=== PATIENT | female | born 1950 | race Caucasian/White ===

== ENCOUNTER → 2017-09-07 | Outpatient (CLI) | payer MEDICARE, BC ==
--- NOTE | 2017-09-07 13:20 | BD ---
EXAMINATION TYPE: Axial Bone Density DATE OF EXAM: 09/07/2017 COMPARISON: NONE CLINICAL HISTORY: Postmenopausal female. Osteoporosis screening. Height: 66 Weight: 177.8 FRAX RISK QUESTIONS: Alcohol (3 or more units per day): no Family History (Parent hip fracture): no Glucocorticoids (More than 3mos): no (Ex: prednisone, prednisolone, methylprednisolone, dexamethasone, and hydrocortisone). History of Fracture in Adulthood: yes Secondary Osteoporosis: 1. Type 1 Diabetes: no 2. Hyperthyroidism: no 3. Menopause before 45: yes 4. Malnutrition: no 5. Chronic liver disease: no Rheumatoid Arthritis: no Current Tobacco Use: no RISK FACTORS HISTORY OF: Family History of Osteoporosis: yes Active: yes Diet low in dairy products/other sources of calcium: yes Postmenopausal woman: hysterectomy age 43 Lost more than 2 inches in height since high school: yes Frequent falls: no MEDICATIONS: tremodol, anti inflammatory med, losartan Additional History: EXAM MEASUREMENTS: Bone mineral densitometry was performed using the [employer] System. Bone mineral density as measured about the Lumbar spine is: ----- L1-L4(G/cm2): 0.861 T Score Values are as follows: ----- L2: -3.2 ----- L3: -2.1 ----- L4: -2.7 ----- L1-L4: -2.7 Bone mineral density has: decreased-6.4 % since study of: 10.16.2001 Bone mineral density about the R hip (g/cm2): 0.691 Bone mineral density about the L hip (g/cm2): 0.709 T Score values are as follows: -----R Neck: -2.5 -----L Neck: -2.4 -----R Total: -2.7 -----L Total: -2.0 Bone mineral density has: decreased-15.8 % since study of: 10.16.2001 IMPRESSION: Osteoporosis (T Score less than -2.5). There is increased fracture risk and therapy is usually indicated based on age. Re-Screen 1-2 years. NOTE: T-SCORE=SD OF THE YOUNG ADULT MEAN.
--- NOTE | 2017-09-11 08:45 | MM ---
Reason for exam: screening (asymptomatic). Last mammogram was performed 1 year and 6 months ago. History: Patient is postmenopausal. Took estrogen for 7 years. Physical Findings: A clinical breast exam by your physician is recommended on an annual basis and results should be correlated with mammographic findings. MG Screening Mammo w CAD Bilateral CC and MLO view(s) were taken. Prior study comparison: February 23, 2016, bilateral MG screening mammo w CAD. The breast tissue is heterogeneously dense. This may lower the sensitivity of mammography. No significant changes when compared with prior studies. ASSESSMENT: Negative, BI-RAD 1 RECOMMENDATION: Routine screening mammogram of both breasts in 1 year.
== END | disposition home or self-care (01) ==
LOC: RADMAMWWP 09:07
PROVIDERS: ATTEND Family Medicine
DX: Z12.31 Encounter for screening mammogram for malignant neoplasm of breast (principal); M81.0 Age-related osteoporosis without current pathological fracture
CPT/HCPCS: 77067; 77080

== ENCOUNTER → 2018-10-31 | Outpatient (CLI) | payer MEDICARE ==
--- NOTE | 2018-10-31 13:41 | MM ---
Reason for exam: screening (asymptomatic). Last mammogram was performed 1 year and 2 months ago. History: Patient is postmenopausal. Took estrogen for 7 years. Physical Findings: A clinical breast exam by your physician is recommended on an annual basis and results should be correlated with mammographic findings. MG 3D Screening Mammo W/Cad Bilateral CC and MLO view(s) were taken. Prior study comparison: September 07, 2017, bilateral MG screening mammo w CAD. February 23, 2016, bilateral MG screening mammo w CAD. The breast tissue is heterogeneously dense. This may lower the sensitivity of mammography. There is no discrete abnormality. ASSESSMENT: Negative, BI-RAD 1 RECOMMENDATION: Routine screening mammogram of both breasts in 1 year.
== END | disposition home or self-care (01) ==
LOC: RADMAMWWP 09:04
PROVIDERS: ATTEND Family Medicine
DX: Z12.31 Encounter for screening mammogram for malignant neoplasm of breast (principal)
CPT/HCPCS: 77063; 77067

== ENCOUNTER 2020-06-03 15:04 | Observation (INO) | payer MEDICARE ==
[2020-06-03] MEDS ORDERED: ASPIRIN 81 MG PO STA (15:37)
[2020-06-03] MEDS ORDERED: SODIUM CHLORIDE 0.9% 1,000 ML IV STA (15:37)
[2020-06-03 15:48] LABS: Basophils % (A) 0 %; Eosinophils # (A) 0.5 k/uL (0-0.7); Eosinophils % (A) 5 %; HCT 42.6 % (34.0-46.0); HGB 14.6 gm/dL (11.4-16.0); Lymphocytes # (A) 2.1 k/uL (1.0-4.8); Lymphocytes % (A) 24 %; MCH 30.4 pg (25.0-35.0); MCHC 34.3 g/dL (31.0-37.0); MCV 88.8 fL (80.0-100.0); Mean Platelet Volume 6.9; Monocytes # (A) 0.4 k/uL (0-1.0); Monocytes % (A) 5 %; Neutrophils # (A) 5.6 k/uL (1.3-7.7); Neutrophils % (A) 65 %; Platelet Count 367 k/uL (150-450); RDW 12.3 % (11.5-15.5); WBC 8.7 k/uL (3.8-10.6)
--- NOTE | 2020-06-03 15:53 | ED ---
Chest Pain HPI - General Chief Complaint: Chest Pain Stated Complaint: chest pain Time Seen by Provider: 06/03/20 15:23 Source: patient, RN notes reviewed Mode of arrival: wheelchair Limitations: no limitations - History of Present Illness Initial Comments: This is a 59-year-old female no prior history of heart or lung disease who was a former smoker who quit 20 years ago who states that over the past 3 days she's been having intermittent episodes of lower retrosternal chest pain with radiation to her back. He states is pressure-like with associated diaphoresis no nausea no vomiting she develops heartburn. It was 10/10 in severity when it would come on. She currently is pain-free no fevers chills sweats cough or other symptoms at this time. MD Complaint: chest pain - Related Data Home Medications Medication Instructions Recorded Confirmed Atorvastatin [Lipitor] 40 mg PO DAILY 06/03/20 06/03/20 Esomeprazole Magnesium [NexIUM 20 mg PO DAILY 06/03/20 06/03/20 24Hr] Lisinopril-Hctz 20-12.5 mg 1 tab PO DAILY 06/03/20 06/03/20 [Zestoretic 20-12.5] Meloxicam [Mobic] 15 mg PO DAILY 06/03/20 06/03/20 traMADol HCL [Ultram] 50 mg PO HS 06/03/20 06/03/20 Allergies Allergy/AdvReac Type Severity Reaction Status Date / Time No Known Allergies Allergy Verified 06/03/20 16:12 Review of Systems ROS Statement: Those systems with pertinent positive or pertinent negative responses have been documented in the HPI. ROS Other: All systems not noted in ROS Statement are negative. EKG Findings - EKG Results: EKG: interpreted by KAYLAN, sinus rhythm (Normal sinus rhythm rate 87. Interval 1:30 QRS duration 84 daily since QTC 378/[address]-T wave changes) Past Medical History Past Medical History: Hyperlipidemia, Hypertension History of Any Multi-Drug Resistant Organisms: None Reported Past Surgical History: Hysterectomy, Orthopedic Surgery Past Psychological History: No Psychological Hx Reported Smoking Status: Former smoker Past Alcohol Use History: None Reported Past Drug Use History: None Reported General Exam - General Exam Comments Initial Comments: This is a well-developed well-nourished awake alert oriented 3 female Limitations: no limitations General appearance: alert, anxious Head exam: Present: atraumatic, normocephalic, normal inspection Eye exam: Present: normal appearance, PERRL, EOMI. Absent: scleral icterus, c onjunctival injection, periorbital swelling ENT exam: Present: normal exam, mucous membranes moist Neck exam: Present: normal inspection, full ROM, other. Absent: tenderness, meningismus, lymphadenopathy Respiratory exam: Present: normal lung sounds bilaterally. Absent: respiratory distress, wheezes, rales, rhonchi, stridor, chest wall tenderness (No stridor. Bruits) Cardiovascular Exam: Present: regular rate, normal rhythm, normal heart sounds. Absent: systolic murmur, diastolic murmur, rubs, gallop, clicks GI/Abdominal exam: Present: soft, normal bowel sounds. Absent: distended, tenderness, guarding, rebound, rigid Extremities exam: Present: normal inspection, full ROM, normal capillary refill. Absent: tenderness, pedal edema, joint swelling, calf tenderness Back exam: Present: normal inspection Neurological exam: Present: alert, oriented X3, CN II-XII intact Psychiatric exam: Present: normal affect, normal mood Skin exam: Present: warm, dry, intact, normal color. Absent: rash Course Vital Signs 06/03/20 06/03/20 06/03/20 15:15 15:33 16:53 Temperature 98.1 F Pulse Rate 89 74 Pulse Rate [ 89 Claims Associate ] Respiratory 17 16 16 Rate Blood Pressure 119/80 O2 Sat by Pulse 98 100 Oximetry 06/03/20 17:49 Temperature Pulse Rate 73 Pulse Rate [ Claims Associate ] Respiratory 16 Rate Blood Pressure 137/73 O2 Sat by Pulse 100 Oximetry - Reevaluation(s) Reevaluation #1: 06/03/20 16:51 The patient C/O recurrent chest pain /10 similar to the other pain. Reevaluation #2: 06/03/20 17:17 Repeat EKG sinus rhythm of 67. Interval 128 QRS duration 82 QT/QTC 390/412 nonspecific T-wave figure aeration this is compared to an earlier one today. Chest Pain MDM - MDM The patient had recurrent chest pain where she department which did resolve after nitroglycerin. EKGs showed no acute changes x-ray was negative for acute findings. Patient will be admitted I did discuss the case with Nilsa was covering for Dr. Irizarry Critical Care Time Critical Care Time: Yes Total Critical Care Time: 35 Critical Care Time: Total care time includes initial presentation with history physical labs x-rays multiple reevaluation patient responsive therapy discussion with the patient family regarding findings discussion with the admitting service admitting orders neck mentation the above Disposition Clinical Impression: Unstable angina pectoris, Chest pain Disposition: ADMITTED IP TO THIS HOSP Condition: Fair Referrals: Cruz Smith DO [Primary Care Provider] - 1-2 days
[2020-06-03 15:59] LABS: D-Dimer 0.58 mg/L FEU (<0.60); Partial Thromboplastin Time 23.7 sec (22.0-30.0); Prothrombin Time 10.4 sec (9.0-12.0)
--- NOTE | 2020-06-03 15:59 | XR ---
EXAMINATION TYPE: XR chest 2V DATE OF EXAM: 06/03/2020 COMPARISON: 12/23/2011 HISTORY: 69-year-old female with chest pain TECHNIQUE: PA and lateral views FINDINGS: Heart normal size. Mild elongation of the thoracic aorta. EKG stickers seen projecting at the periphe ry of the upper lungs bilaterally. Focal left basilar opacity. No pleural effusion. IMPRESSION: Focal left basilar opacity could represent atelectasis or early infiltrate. Correlate with patient's symptoms.
[2020-06-03 16:00] LABS: Albumin 4.5 g/dL (3.5-5.0); Calcium 9.9 mg/dL (8.4-10.2); Magnesium 1.9 mg/dL (1.6-2.3); Potassium 3.8 mmol/L (3.5-5.1); Total Bilirubin 0.4 mg/dL (0.2-1.3); Total Protein 7.6 g/dL (6.3-8.2)
[2020-06-03] MEDS ORDERED: NITROGLYCERIN SL TABS 0.4 MG TAB SUBLINGUAL STA (16:50)
[2020-06-03] MEDS ORDERED: HEPARIN SODIUM,PORCINE 5,000 UNIT/ML 1 ML VIAL IV ONE (18:07)
[2020-06-03] MEDS ORDERED: NITROGLYCERIN SL TABS 0.4 MG TAB SUBLINGUAL PRN (18:07)
[2020-06-03] MEDS ORDERED: HEPARIN SOD,PORK IN 0.45% NACL 25,000 UNIT in 0.45% NACL 1 250ML.BAG IV SCH (18:15)
[2020-06-03] MEDS ORDERED: NITROGLYCERIN OINT 1 INCH/GM PACKET TOPICAL STA (18:18)
[2020-06-03] MEDS: SODIUM CHLORIDE 0.9% 1,000 ML IV SCH (18:20)
[2020-06-03] MEDS ORDERED: traMADol 50 MG TAB PO SCH (21:00)
[2020-06-03] MEDS ORDERED: HEPARIN SODIUM,PORCINE 5,000 UNIT/ML 1 ML VIAL IV PRN (22:37)
[2020-06-04] MEDS: NITROGLYCERIN OINT 1 INCH/GM PACKET TOPICAL SCH ×2 (04:23→06:13)
[2020-06-04 07:09] LABS: Cholesterol 239 mg/dL (<200); HDL Cholesterol 59 mg/dL (40-60); LDL Cholesterol,Calculated 155 mg/dL (0-99); Triglycerides 126 mg/dL (<150)
[2020-06-04 08:05] VITALS: RESP 18
[2020-06-04] MEDS ORDERED: SODIUM CHLORIDE 0.9% 1,000 ML in EMPTY BAG 1 BAG IV ONE (08:21)
[2020-06-04] MEDS ORDERED: ALPRAZolam 0.5 MG TAB PO PRN (08:21)
[2020-06-04] MEDS ORDERED: NITROGLYCERIN SL TABS 0.4 MG TAB SUBLINGUAL PRN (08:21)
[2020-06-04] MEDS ORDERED: ASPIRIN 325 MG TAB PO STA (08:21)
[2020-06-04] MEDS ORDERED: ALPRAZolam 0.25 MG TAB PO PRN (08:21)
[2020-06-04] MEDS ORDERED: ATORVASTATIN 80 MG TAB PO STA (08:21)
[2020-06-04] MEDS ORDERED: ATORVASTATIN 40 MG TAB PO STA (08:24)
[2020-06-04] MEDS ORDERED: MELOXICAM 7.5 MG TAB PO SCH (09:00)
[2020-06-04] MEDS ORDERED: ASPIRIN 81 MG PO SCH (09:00)
[2020-06-04] MEDS ORDERED: ASPIRIN 325 MG TAB PO SCH (09:00)
[2020-06-04] MEDS ORDERED: ATORVASTATIN 40 MG TAB PO SCH (09:00)
[2020-06-04] MEDS ORDERED: PANTOPRAZOLE 40 MG TABLET PO SCH (09:00)
[2020-06-04] MEDS ORDERED: LISINOPRIL-HCTZ 20-12.5 MG 1 EACH TAB PO SCH (09:00)
--- NOTE | 2020-06-04 11:42 | CONS ---
CONSULTATION Mrs. Carlson is a 69-year-old female with a known history of hypertension, hyperlipidemia, a family history of premature coronary artery disease who presented with symptoms of chest discomfort. She has been having the discomfort on and off for the last few days, brief, not clearly exertion in pattern. Yesterday the discomfort was worse and she came into the emergency room. At the time my evaluation, she was doing well. The patient is average in exercise tolerance, has no clear exertional chest discomfort in the past. She has underwent cardiac catheterization about 20 years ago that revealed no evidence of high-grade stenosis according to her. She has no PND, orthopnea, or peripheral edema. No dizziness or palpitation. No syncope. Her coronary risk factors are remarkable for the hypertension, hyperlipidemia and a family history of premature coronary artery disease. MEDICATIONS: Her medications include Nexium 20 mg daily, tramadol, Mobic on a p.r.n. basis, lisinopril HCT 20/12.5 mg daily, Lipitor 40 mg daily. REVIEW OF SYSTEMS: RESPIRATORY SYSTEM: She has no documented history of asthma or emphysema. No recent fever or chills. GI SYSTEM: No recent GI bleed. No peptic ulcer disease. SYSTEM: No dysuria or hematuria. NERVOUS SYSTEM: No stroke or seizure. PHYSICAL EXAMINATION: A 69-year-old female, alert, oriented, in no apparent distress. Blood pressure 126/70 with the heart rate in the 70s. HEAD: Normocephalic. EYES: Sclerae anicteric. NECK: Good carotid upstroke. No bruit. No jugular venous distention. LUNGS: Clear to auscultation. HEART: Regular rate and rhythm. S1, S2. No S3. No S4. No murmur or rub. ABDOMEN: Soft, nontender. Positive bowel sounds. No organomegaly. EXTREMITIES: No edema. Intact distal pulses. LAB DATA: Lab data revealed a BUN and creatinine 21and 0.82. Troponin of less than 0.012 for 3 samples. Potassium 3.8, hemoglobin 14.6. EKG: First EKG revealed sinus mechanism, normal axis and intervals with minor nonspecific ST-T wave changes. Subsequent EKG showed mild T-wave inversion in the lateral precordial leads. IMPRESSION: 1. Chest discomfort of unclear etiology with mild EKG changes and multiple risk factors. 2. History of hypertension. 3. Hyperlipidemia. 4. Family history of premature coronary artery disease. RECOMMENDATION: In view of her risk factors, her presentation and the results of her EKG, I have recommended proceeding with coronary angiography to assess her status and guide her treatment. The rationale behind the procedure as well as the risks and the complications were discussed with the patient and she is in full understanding and agreement. Thank you for this consult. We will follow with you. WING / JACKY: [id number] /
[2020-06-04] MEDS ORDERED: IV FLUID CONTINUATION 900 ML IV ONE (13:00)
[2020-06-04] MEDS ORDERED: VERAPAMIL 2.5 MG/ML 2 ML AMP ONE (13:06)
[2020-06-04] MEDS ORDERED: HEPARIN SODIUM 1,000 UN/ML (10ML VL) ONE (13:06)
[2020-06-04] MEDS ORDERED: fentaNYL (PF) 50 MCG/ML 2 ML AMP ONE (13:06)
[2020-06-04] MEDS ORDERED: LIDOCAINE 1% INJ 10MG/ML (20 ML MDV) ONE (13:06)
[2020-06-04] MEDS ORDERED: fentaNYL (PF) 50 MCG/ML 2 ML AMP IV ONE (13:08)
[2020-06-04] MEDS: LIDOCAINE 1% INJ 10MG/ML (20 ML MDV) SQ ONE ×2 (13:09→13:23)
[2020-06-04] MEDS ORDERED: IOPAMIDOL-370 125ML BTL INJ ONE (13:30)
[2020-06-04] MEDS ORDERED: RX INFO: IV CONTRAST WAS GIVEN 1 EACH MISC MISCELLANE PRN (13:39)
--- NOTE | 2020-06-04 13:44 | ECHOF ---
Referral Reason:cp MEASUREMENTS -------- HEIGHT: 170.2 cm WEIGHT: 72.6 kg BP: RVIDd: 3.1 cm (< 3.3) IVSd: 1.2 cm (0.6 - 1.1) LVIDd: 4.2 cm (3.9 - 5.3) LVPWd: 1.6 cm (0.6 - 1.1) IVSs: 1.5 cm LVIDs: 3.4 cm LVPWs: 1.2 cm LAESV Index (A-L): 13.64 ml/m MV EXCURSION: 21.518 mm (> 18.000) MV EF SLOPE: 155 mm/s (70 - 150) EPSS: 0.5 cm MV E Parish: 0.55 m/s MV DecT: 242 ms MV A Parish: 0.78 m/s MV E/A Ratio: 0.70 RAP: 5.00 mmHg RVSP: 26.73 mmHg FINDINGS -------- Sinus rhythm. This was a technically adequate study. The left ventricular size is normal. There is borderline concentric left ventricular hypertrophy. Overall left ventricular systolic function is normal with, an EF between 55 - 60 %. The diastolic filling pattern is normal for the age of the patient 10.77. The right ventricle is normal in size. Normal LA size by volume 22+/-6 ml/m2. The right atrial size is normal. xx ml of Lumason was utilized for enhancement of images. The aortic valve is trileaflet, and appears structurally normal. No aortic stenosis or regurgitation. The mitral valve is normal. Mild mitral regurgitation is present. The tricuspid valve appears structurally normal. Mild tricuspid regurgitation present. Right vent ricular systolic pressure is normal at < 35 mmHg. The pulmonic valve was not well visualized. The aortic root size is normal. There is no pericardial effusion. CONCLUSIONS -------- 1. There is borderline concentric left ventricular hypertrophy. 2. Overall left ventricular systolic function is normal with, an EF between 55 - 60 %. 3. Normal LA size by volume 22+/-6 ml/m2. 4. xx ml of Lumason was utilized for enhancement of images. 5. The aortic valve is trileaflet, and appears structurally normal. No aortic stenosis or regurgitati on. 6. Mild mitral regurgitation is present. 7. Mild tricuspid regurgitation present. 8. There is no pericardial effusion. REGISTRY NP: Antoinette Wise RDCS
[2020-06-04] MEDS ORDERED: SODIUM CHLORIDE 0.9% 1,000 ML IV SCH (13:45)
--- NOTE | 2020-06-04 14:34 | CC ---
CARDIAC CATHETERIZATION REPORT Mrs. Carlson is a 69-year-old female with known history of hypertension, hyperlipidemia and a family history of premature coronary artery disease who presented with symptoms of chest discomfort. She had no enzymatic changes but there was mild T- wave inversion in the lateral leads. Because of those findings and her symptoms, recommendation was made regarding cardiac catheterization. The procedure, its risks and the complications were discussed with the patient who is in full understanding and agreement. PROCEDURE: Patient was brought to the engineering lab technician in a fasting semi-sedated state after receiving fentanyl and Benadryl and achieving moderate conscious sedated state. Using Xylocaine anesthesia and Seldinger technique, a 6-Cymraes sheath was attempted to advance the wire in the right radial artery. After obtaining blood return, we were unsuccessful because of spasm. Subsequently, using Xylocaine anesthesia and Seldinger technique a 6-Cymraes sheath was introduced in the right femoral artery. Selective right and left coronary angiography was performed using 5-Cymraes 3.5 bend right and left Negro catheter. Multiple views of the coronary artery including hemiaxial views were obtained. Following that 5-Cymraes tight pigtail catheter was introduced in the left ventricle and a 30-degree JIMENEZ view of the left ventricle was obtained. Following that, catheter and sheath were removed. Hemostasis was obtained with deployment of an Angio-Seal. There was no immediate complication. Patient was returned to her room in stable condition. FINDINGS: LEFT MAIN: This is a large-size vessel, bifurcating into left circumflex, left anterior descending artery. Left main coronary artery has no evidence of high-grade stenosis. LEFT ANTERIOR DESCENDING ARTERY: This is a large-sized vessel reaching to the apex with a wraparound apex segment giving rise to a proximal diagonal branch. The left anterior descending artery as well as branches have no evidence of obstructive coronary artery disease. LEFT CIRCUMFLEX: This is a nondominant vessel, large in caliber giving rise to a large obtuse marginal branch. The left circumflex as well as branches have no evidence of obstructive coronary artery disease. RIGHT CORONARY ARTERY: This is a large dominant vessel bifurcating distally PDA and posterolateral segment and branches. The right coronary artery as well as branches have no evidence of obstructive coronary artery disease. EFT VENTRICULOGRAM: Left ventriculogram was not performed. HEMODYNAMICS: There was no gradient across the aortic valve. The left ventricular end- diastolic pressure was 12-16 mmHg. CONCLUSION: 1. Normal coronary arteries. 2. Normal left ventricular systolic pressure. RECOMMENDATION: In view of findings and anatomy, I recommend continue medical therapy with aggressive coronary risk modifications that have been initiated. Those findings and recommendation were discussed with the patient and she was in full understanding and agreement. Duration of sedation is 24 minutes. WING / JACKY: [id number] /
[2020-06-04] MEDS ORDERED: ACETAMINOPHEN TAB 325 MG TAB PO PRN (15:09)
[2020-06-04] MEDS: SODIUM CHLORIDE 0.9% 1,000 ML IV SCH (19:23)
[2020-06-04 20:23] VITALS: BP 131/78; PULSE 73; TEMP 97.9
[2020-06-05] MEDS ORDERED: HEPARIN SODIUM,PORCINE 2,500 UNIT in SODIUM CHLORIDE 0.9% 250 ML IRRIGATION PRN (07:00)
[2020-06-05] MEDS ORDERED: HEPARIN SODIUM,PORCINE 10,000 UNIT in SODIUM CHLORIDE 0.9% 1,000 ML IRRIGATION PRN (07:00)
== END 2020-06-04 20:40 | disposition home or self-care (01) ==
LOC: EC 15:04 → 6NMEDSUR 18:17
PROVIDERS: ADMIT Internal Medicine; ATTEND Internal Medicine
DX: R07.9 Chest pain, unspecified (principal); E78.5 Hyperlipidemia, unspecified; I10 Essential (primary) hypertension; R61 Generalized hyperhidrosis; Z87.891 Personal history of nicotine dependence; Z79.1 Long term (current) use of non-steroidal anti-inflammatories (NSAID); Z82.49 Family history of ischemic heart disease and other diseases of the circulatory system; Z90.710 Acquired absence of both cervix and uterus; Z79.899 Other long term (current) drug therapy
CPT/HCPCS: 96366 ×3; 96376; 96361; 96365; 99291; 36415; 94760; 93005; 93458; 85379; 83880; 80061; 80053; 82550; 83690; 83735; 84484; 85025; 85610; 85730 ×2; 87635; 71046; G0378 ×2; C8929; C1760; C1894 ×2; C1769 ×2; J1644 ×2; J2001; J3010; Q9950; Q9967; 93306

== ENCOUNTER → 2021-09-07 | Outpatient (CLI) | payer MEDICARE, OTHER ==
--- NOTE | 2021-09-07 20:48 | BD ---
EXAMINATION TYPE: Axial Bone Density DATE OF EXAM: 09/07/2021 COMPARISON: 09.07.2017 CLINICAL HISTORY: 71 years year old Female. ICD-10 CODE: M81.0 OSTEOPOROSIS Height: 65IN Weight: 178 FRAX RISK QUESTIONS: History of Fracture in Adulthood: YES Secondary Osteoporosis: 3. Menopause before 45: AT 47 RISK FACTORS HISTORY OF: HISTORY OF ELBOW FX Family History of Osteoporosis: YES Diet low in dairy products/other sources of calcium: YES Postmenopausal woman: HYSTERECTOMY AT 47 Take estrogen and/or progesterone medications: IN THE PAST FOR 10 YEARS Lost more than 2 inches in height since high school: YES MEDICATIONS: Additional Medications: BP MEDS, PAIN MEDS, CHOLESTEROL MED, VITAMIN D EXAM MEASUREMENTS: Bone mineral densitometry was performed using the [employer] System. Bone mineral density as measured about the Lumbar spine is: ----- L1-L4(G/cm2): 0.880 T Score Values are as follows: ----- L1: -2.9 ----- L2: -3.1 ----- L3: -2.4 ----- L4: -1.7 ----- L1-L4: -2.5 Bone mineral density has: Increased 3.4% since study of: 09-07-2017 Bone mineral density about the R hip (g/cm2): 0.673 Bone mineral density about the L hip (g/cm2): 0.735 T Score values are as follows: -----R Neck: -2.7 -----L Neck: -2.3 -----R Total: -2.7 -----L Total: -2.2 Bone mineral density has: Decreased -0.6% since study of: 09.07.2017 FRAX%s: The graph provided illustrates a 14.3% chance for a major osteoporotic fx and a 3.7% chance f or the hips probability for fx in 10 years time. IMPRESSION: Osteoporosis (T Score less than -2.5). There is increased fracture risk and therapy is usually indicated based on age. Re-Screen 1-2 years. NOTE: T-SCORE=SD OF THE YOUNG ADULT MEAN.
--- NOTE | 2021-09-13 13:43 | MM ---
Reason for Exam: Screening (asymptomatic). Last mammogram was performed 2 year(s) and 10 month(s) ago. Patient History: Menarche at age 16. Left ovary removed at age 43. Right ovary removed at age 43. Hysterectomy at age 43. Postmenopausal. Patient used Estrogen for 7 years. Maternal cousin had breast cancer at or over age 50. Risk Values: Che 5 year model risk: 1.1%. NCI Lifetime model risk: 3.5%. Prior Study Comparison: 02/23/2016 Bilateral Screening Mammogram, [facility]. 09/07/2017 Bilateral Screening Mammogram, [facility]. 10/31/2018 Bilateral Screening Mammogram, [facility]. Tissue Density: The breast tissue is heterogeneously dense. This may lower the sensitivity of mammography. Findings: Analyzed By CAD. Benign-appearing bilateral axillary lymph nodes are redemonstrated. There is no suspicious group of microcalcifications or new suspicious mass in either breast. Overall Assessment: Negative, BI-RAD 1 Management: Screening Mammogram of both breasts in 1 year. A clinical breast exam by your physician is recommended on an annual basis and results should be correlated with mammographic findings. Electronically signed and approved by: Wojciech Felton M.D.
== END | disposition home or self-care (01) ==
LOC: RADBDWWP 09:50
PROVIDERS: ATTEND Family Medicine
DX: Z12.31 Encounter for screening mammogram for malignant neoplasm of breast (principal); M81.0 Age-related osteoporosis without current pathological fracture
CPT/HCPCS: 77063; 77067; 77080

== ENCOUNTER → 2023-07-19 | Outpatient (CLI) | payer MEDICARE ==
--- NOTE | 2023-07-20 11:02 | CA ---
Exercise Stress Test Report Name: Janet Carlson Exam Date: 07/19/2023 11:48 Exam Location: [place] Stress Ht (in): 67 Wt (lb): 177 BSA: 1.92 Ordering Phys: Cruz Smith DO Referring Phys: Josi Alexandra Technologist: JOSE MATOS Age: 72 Gender: F : 1950 Procedure CPT: Indications: R07.9 CHEST PAIN R53.83 FATIGUE ICD-10 Codes: Patient History: Medications: LISINOPRIL, ATORVASTATIN, TRAMADOL Meds past 24 hrs: Pretest Chest Pain: STRESS TEST Av Protocol Exercise Duration (min:sec): 03:[address] Depressions (mm): Angina Score: Soliz Score: Resting HR (bpm): 74 Peak HR (bpm): 128 Resting BP (mmHg): 171 / 102 Peak BP (mmHg): 196 / 95 MPHR: 150 Target HR: 128 % MPHR: 85 METS: 4.7 Total Dose: Peak Dose: Atropine: Double Product: 84692 BP Response: Stress Termination: Reached target heart rate Stress Symptoms: NO SYMPTOMS Stress Summary: ECG ANALYSIS Resting ECG: Stress ECG: CONCLUSIONS Baseline heart is 72 beats a minute, Baseline blood pressure 171/102 mmHg hypertension Patient exercised on a Av protocol for 3 minutes only achieving 4.7 METs of workload Peak heart rate 137 beats a minute No ECG also ischemia no arrhythmias Impression Patient exercised a Av protocol for only 3 minutes No abnormalities noted at this workload level Dr. Keven Patino MD (Electronically Signed) Final Date: 20 July 2023 11:01
== END | disposition home or self-care (01) ==
LOC: RADNMMAIN 10:42
PROVIDERS: ATTEND Family Medicine
DX: I10 Essential (primary) hypertension (principal); R07.9 Chest pain, unspecified; R53.83 Other fatigue
CPT/HCPCS: 93017

== ENCOUNTER → 2023-08-29 | Outpatient (CLI) | payer MEDICARE ==
--- NOTE | 2023-08-29 11:52 | XR ---
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 FINDINGS: No evidence of any acute osseous pathology. No evidence of loss of vertebral body height i s seen. There is normal alignment of the lumbar vertebral bodies. Endplate spondylosis at multiple le vels. Narrowed facet joint on the left at L5-S1. Degenerative loss of disc height at L4-L5 IMPRESSION: 1. No acute fracture. 2. Mild multilevel disc degeneration.
== END | disposition home or self-care (01) ==
LOC: RADXRYALE 10:22
PROVIDERS: ATTEND Physician Assistant
DX: M51.36 Other intervertebral disc degeneration, lumbar region (principal)
CPT/HCPCS: 72110

== ENCOUNTER → 2023-09-13 | Outpatient (CLI) | payer MEDICARE ==
--- NOTE | 2023-09-13 14:49 | MR ---
EXAMINATION TYPE: MR lumbar spine wo con DATE OF EXAM: 09/13/2023 COMPARISON: None HISTORY: Low back pain that radiates down both legs. TECHNIQUE: Multiplanar, multisequence images of the lumbar spine were acquired without IV contrast. L1-L2: Normal disc appearance without desiccation. No herniation, protrusion or disc bulging. No ca nal stenosis is present. Foramina are patent bilaterally. L2-L3: Normal disc appearance without desiccation. No herniation, protrusion or disc bulging. No ca nal stenosis is present. Foramina are patent bilaterally. L3-L4: Mild decreased signal ossified compatible degenerative disc disease. Posterior disc bulge with effacement of the ventral thecal sac. Bilateral lateral recess stenosis and foraminal encroachment. No evidence of herniation or central stenosis at this time. L4-L5: Mild disc desiccation with minimal posterior disc bulge. No herniation, protrusion or disc bul ging. No canal stenosis is present. Mild bilateral neural foraminal encroachment. L5-S1: Mild disc desiccation mild posterior disc bulge. No herniation or disc protrusion. No central stenosis. Mild bilateral foraminal encroachment. Lumbar segments are intact. No paraspinal masses are identified. Conus medullaris has a normal appe arance. IMPRESSION: 1. Multilevel degenerative disc disease. 2. Bilateral lateral recess stenosis at L3-4. 3. Neural foraminal encroachment as outlined above.
== END | disposition home or self-care (01) ==
LOC: RADMRIMAIN 12:27
PROVIDERS: ATTEND Family Medicine
DX: M51.36 Other intervertebral disc degeneration, lumbar region (principal); M48.061 Spinal stenosis, lumbar region without neurogenic claudication; M54.16 Radiculopathy, lumbar region
CPT/HCPCS: 72148

== ENCOUNTER → 2023-09-13 | Outpatient (CLI) | payer MEDICARE ==
--- NOTE | 2023-09-13 13:50 | BD ---
EXAMINATION TYPE: Axial Bone Density DATE OF EXAM: 09/13/2023 CLINICAL HISTORY: 73 years old Female. ICD-10 CODE: M81.0 AGE-RELATED OSTEOPOROSI Height: 64.75in Weight: 173lb FRAX RISK QUESTIONS: History of Fracture in Adulthood: yes Secondary Osteoporosis: 3. Menopause before 45: at 47 RISK FACTORS HISTORY OF: MEDICATIONS: Osteoporosis Medications: Which medication: Fosamax How Lon year EXAM MEASUREMENTS: Bone mineral densitometry was performed using the [employer] System. Bone mineral density as measured about the Lumbar spine is: ----- L1-L4(G/cm2): 0.848 T Score Values are as follows: ----- L1: -3.2 ----- L2: -3.0 ----- L3: -2.7 ----- L4: -2.3 ----- L1-L4: -2.8 Z Score Values are as follows: ----- L1: -2.0 ----- L2: -1.8 ----- L3: -1.5 ----- L4: -1.1 ----- L1-L4: -1.5 Bone mineral density has: Decreased -3.6% since study of: 09-07-21 Bone mineral density about the R hip (g/cm2): 0.661 Bone mineral density about the L hip (g/cm2): 0.724 T Score values are as follows: -----R Neck: -2.7 -----L Neck: -2.5 -----R Total: -2.8 -----L Total: -2.3 Z Score values are as follows: -----R Neck: -1.3 -----L Neck: -1.0 -----R Total: -1.6 -----L Total: -1.1 Bone mineral density has: Decreased -1.7% since study of: 09-07-21 FRAX%s: The graph provided illustrates a 15% chance for a major osteoporotic fx and a 4.2% chance for the hips probability for fx in 10 years time. IMPRESSION: Osteoporosis (T Score less than -2.5). There is increased fracture risk and therapy is usually indicated based on age. Re-Screen 1-2 years. NOTE: T-SCORE=SD OF THE YOUNG ADULT MEAN.
--- NOTE | 2023-09-17 07:52 | MM ---
Reason for Exam: Screening (asymptomatic). Last mammogram was performed 2 year(s) and 0 month(s) ago. Patient History: Menarche at age 16. First Full-Term at age 26. Left ovary removed at age 43. Right ovary removed at age 43. Hysterectomy at age 43. Postmenopausal. Patient used Estrogen for 7 years. Maternal cousin had breast cancer at or over age 50. Risk Values: Che 5 year model risk: 1.4%. NCI Lifetime model risk: 4.0%. Prior Study Comparison: 09/07/2017 Bilateral Screening Mammogram, [facility]. 10/31/2018 Bilateral Screening Mammogram, [facility]. 09/07/2021 Bilateral MG 3D screening mammo w/cad, [facility]. Tissue Density: The breasts are heterogeneously dense, which may obscure small masses. Findings: Analyzed By CAD. There is no suspicious group of microcalcifications or new suspicious mass in either breast. Overall Assessment: Negative, BI-RAD 1 Management: Screening Mammogram of both breasts in 1 year. . Patient should continue monthly self-breast exams. A clinical breast exam by your physician is recommended on an annual basis. This exam should not preclude additional follow-up of suspicious palpable abnormalities. Note on Che scores and lifetime risk: 1. A Che score greater than 3% is considered moderate risk. If this is the case, consider specialist referral to assess eligibility for a risk reducing agent. 2. If overall lifetime risk for the development of breast cancer is 20% or higher, the patient may qualify for future screening with alternating mammogram and breast MRI. Electronically signed and approved by: Quintin Alvarez M.D. [facility]iolog[facility]
== END | disposition home or self-care (01) ==
LOC: RADMAMWWP 10:31
PROVIDERS: ATTEND Family Medicine
DX: Z12.31 Encounter for screening mammogram for malignant neoplasm of breast (principal); M81.0 Age-related osteoporosis without current pathological fracture; Z13.820 Encounter for screening for osteoporosis
CPT/HCPCS: 77067; 77080